=== PATIENT | female | born 1960 | race Caucasian/White ===

== ENCOUNTER 2016-12-06 16:42 | Emergency (ER) | payer OTHER ==
[2016-12-06 18:31] VITALS: BP 170/88
--- NOTE | 2016-12-06 18:51 | UC ---
Lower Extremity/Ankle HPI - HPI Summary HPI Summary: Tripped on edge of carpet at home 4 days ago, twisted L foot and ankle. Having pain in L foot with walking, no focal tenderness. Denies hx of fx or sx in that extremity. - History of Current Complaint Chief Complaint: UCLowerExtremity Stated Complaint: FOOT INJURY Time Seen by Provider: 12/06/16 18:17 Hx Obtained From: Patient ?: No Onset/Duration: Sudden Onset Severity Initially: Moderate Severity Currently: Mild Aggravating Factor(s): Standing, Ambulation Alleviating Factor(s): Rest Able to Bear Weight: Yes - Allergies/Home Medications Allergies/Adverse Reactions: Allergies Allergy/AdvReac Type Severity Reaction Status Date / Time Ibuprofen [From Advil] Allergy Unknown Unknown Verified 12/06/16 18:20 Reaction Details Erythromycin Allergy Unknown Verified 12/06/16 18:20 Reaction Details Penicillins [PCN] Allergy Unknown Verified 12/06/16 18:20 Reaction Details PMH/Surg Hx/FS Hx/Imm Hx Cardiovascular History Of: Reports: Hypertension Respiratory History Of: Reports: COPD - NEW DX 08/09/2013, Asthma - Surgical History Surgical History: Yes Surgery Procedure, Year, and Place: TUBAL LIGATION AGE 40, AGE 40. LEFT FOREARM PLATES BOTH BONES DUE TO FX AND LATER REMOVAL OF PLATE ON ONE BONE DUE TO INFECTION - Family History Known Family History: Positive: Cardiac Disease, Hypertension - Social History Occupation: Employed Full-time Lives: With Family Alcohol Use: Rare Substance Use Type: None Smoking Status (MU): Never Smoked Tobacco - Immunization History Most Recent Influenza Vaccination: UNSURE Most Recent Tetanus Shot: UP TO DATE Most Recent Pneumonia Vaccination: NEVER Review of Systems Constitutional: Negative Skin: Negative Eyes: Negative ENT: Negative Respiratory: Negative Cardiovascular: Negative Gastrointestinal: Negative Genitourinary: Negative Motor: Negative Neurovascular: Negative Musculoskeletal: Arthralgia Neurological: Negative Psychological: Negative All Other Systems Reviewed And Are Negative: Yes Physical Exam Triage Information Reviewed: Yes Appearance: Well-Appearing, No Pain Distress, Obese Vital Signs: Initial Vital Signs Temp 97.6 F 12/06/16 18:21 Pulse 76 12/06/16 18:21 Resp 18 12/06/16 18:21 BP 170/88 12/06/16 18:21 Pulse Ox 92 12/06/16 18:21 Vital Signs Reviewed: Yes Eye Exam: Normal Eyes: Positive: Conjunctiva Clear ENT Exam: Normal ENT: Positive: Normal ENT inspection, Hearing grossly normal, Pharynx normal, TMs normal Dental Exam: Normal Neck exam: Normal Neck: Positive: Supple, Nontender, No Lymphadenopathy Respiratory Exam: Normal Respiratory: Positive: Chest non-tender, Lungs clear, Normal breath sounds, No respiratory distress, No accessory muscle use Cardiovascular Exam: Normal Cardiovascular: Positive: RRR, No Murmur Musculoskeletal Exam: Other - mild tenderness over midfoot with squeeze Musculoskeletal: Positive: Strength Intact, ROM Intact Neurological Exam: Normal Psychological Exam: Normal Skin Exam: Normal Lower Extremity Course/Dx - Differential Dx/Diagnosis Provider Diagnoses: L foot sprain Discharge - Discharge Plan Condition: Stable Disposition: HOME Patient Education Materials: Foot Sprain (ED) Forms: *Work Release Referrals: Junior Jimenez MD [Primary Care Provider] - Herberth Leary MD [Medical Doctor] - Additional Instructions: If you are unable to return to normal activities within about a week, please see either Dr. Leary or your primary care provider.
--- NOTE | 2016-12-06 19:28 | RAD ---
INDICATION: Left foot injury. TECHNIQUE: 3 views of the left foot were obtained. FINDINGS: There is soft tissue swelling present over the dorsal aspect of the foot. The bones are normal alignment. No fracture is seen. Joint spaces appear maintained. IMPRESSION: SOFT TISSUE SWELLING, NO FRACTURE IS SEEN. IF THE PATIENT'S SYMPTOMS PERSIST RECOMMEND FOLLOW-UP IMAGING.
== END 2016-12-06 19:41 | disposition home or self-care (01) ==
LOC: UCEAST 16:42
DX: S93.602A Unspecified sprain of left foot, initial encounter (principal); X50.1XXA Overexertion from prolonged static or awkward postures, initial encounter; Y93.9 Activity, unspecified; Y92.9 Unspecified place or not applicable; Z88.6 Allergy status to analgesic agent; Z88.1 Allergy status to other antibiotic agents; Z88.0 Allergy status to penicillin
CPT/HCPCS: 99212; G0463

== ENCOUNTER 2017-03-04 23:06 | Emergency (ER) | payer OTHER ==
[2017-03-04 23:53] VITALS: BP 158/93
--- NOTE | 2017-03-04 23:53 | ED ---
Skin Complaint - HPI Summary HPI Summary: Patient presents with discoloration of her hands, right greater than left. She was recently hospitalized and had and A-line in the right wrist and worries she might have blood clot. She began to notice discoloration in the left thumb and index finger as well. She denies known injury. No N/T. Her hands are not cold and she has full function. - History of Current Complaint Chief Complaint: EDGeneral Time Seen by Provider: 03/04/17 23:27 Stated Complaint: DISCOLORATION ON BOTH HANDS Hx Obtained From: Patient Onset/Duration: Started Hours Ago Timing: Constant Onset Severity: Mild Current Severity: Moderate Pain Intensity: 4 Skin Location: Hand Aggravating Symptom(s): Nothing Alleviating Symptom(s): Nothing Associated Signs & Symptoms: Pallor Related History: Other: - hsopsitalization with A-line placement 7 days ago - Allergy/Home Medications Allergies/Adverse Reactions: Allergies Allergy/AdvReac Type Severity Reaction Status Date / Time Ibuprofen [From Advil] Allergy Unknown Unknown Verified 03/04/17 23:49 Reaction Details Azithromycin Allergy Unknown Verified 03/04/17 23:49 Reaction Details Clindamycin Allergy Unknown Verified 03/04/17 23:49 Reaction Details Doxycycline Allergy Unknown Verified 03/04/17 23:49 Reaction Details Erythromycin Allergy Unknown Verified 03/04/17 23:49 Reaction Details Penicillins [PCN] Allergy Unknown Verified 03/04/17 23:49 Reaction Details PMH/Surg Hx/FS Hx/Imm Hx Endocrine/Hematology History: Reports: Hx Anemia Cardiovascular History: Reports: Hx Hypertension - uses medication Respiratory History: Reports: Hx Asthma - when experiencing allergic reaction, Hx Chronic Obstructive Pulmonary Disease (COPD) - NEW DX 08/09/2013, Hx Seasonal Allergies, Other Respiratory Problems/Disorders - uses oxygen when sleeping 1.5- 2 L, elevated arturo-diaphragm Left side, History: Reports: Hx Kidney Stones - first time experiencing kidney stone Musculoskeletal History: Reports: Other Musculoskeletal History - 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 LEFT FOREARM PLATES BOTH BONES DUE TO FX AND LATER REMOVAL OF PLATE ON ONE BONE DUE TO INFECTION Hx Anesthesia Reactions: No Infectious Disease History: Reports: Hx Hepatitis - HEPATITIS A HX Denies: Traveled Outside the [place] in Last 30 Days - Family History Known Family History: Positive: Cardiac Disease, Hypertension - Social History Occupation: Unemployed Alcohol Use: Rare Alcohol Amount: 1-2 drinks a month Substance Use Type: Reports: None Smoking Status (MU): Never Smoked Tobacco Review of Systems Positive: Other - bluish tinge to skin All Other Systems Reviewed And Are Negative: Yes Physical Exam Triage Information Reviewed: Yes Vital Signs On Initial Exam: Initial Vitals Temp Pulse Resp BP Pulse Ox 97.7 F 83 18 136/84 95 03/04/17 23:19 03/04/17 23:19 03/04/17 23:19 03/04/17 23:19 03/04/17 23:19 Vital Signs Reviewed: Yes Appearance: Positive: Well-Appearing, No Pain Distress, Obese Skin: Positive: Warm, Skin Color Reflects Adequate Perfusion, Dry, Soft, Other - bluish tinge to dorsum of right hand and left index and thumb fingers that wipes away easily with soap and water. Head/Face: Positive: Normal Head/Face Inspection Eyes: Positive: EOMI, [place], Conjunctiva Clear ENT: Positive: Hearing grossly normal Neck: Positive: Supple, Nontender, No Lymphadenopathy Respiratory/Lung Sounds: Positive: Clear to Auscultation, Breath Sounds Present Cardiovascular: Positive: RRR Abdomen Description: Positive: Nontender, Soft Bowel Sounds: Positive: Present Musculoskeletal: Positive: Strength/ROM Intact Neurological: Positive: Sensory/Motor Intact, Alert, Oriented to Person Place, Time, [place] Bundle Intact Distally Psychiatric: Positive: Affect/Mood Appropriate AVPU Assessment: Alert Diagnostics - Vital Signs Vital Signs Temp Pulse Resp BP Pulse Ox 03/04/17 23:19 97.7 F 83 18 136/84 95 - Laboratory Lab Statement: Any lab studies that have been ordered have been reviewed, and results considered in the medical decision making process. Course/Dx - Course Course Of Treatment: The patient was wearing a new blue house coat with pockets and apparently by placing her hands in and out of her pockets she had rubbed the from the material onto her hands. Her had were cleaned with soap and water. No other services needed. - Differential Diagnoses - Skin Complaint Differential Diagnoses: Contact Dermatitis, Dehydration, Foreign Body, Hypoglycemia, Lymphadenitis, MRSA, Tinea, Urticaria - Diagnoses Provider Diagnoses: Bluish skin discoloration Discharge - Discharge Plan Condition: Stable Disposition: HOME Referrals: Junior Jimenez MD [Primary Care Provider] - Additional Instructions: Please follow-up with your primary care provider as needed.
== END 2017-03-05 00:09 | disposition home or self-care (01) ==
LOC: ED 23:06
DX: R23.0 Cyanosis (principal)
CPT/HCPCS: 99282

== ENCOUNTER 2019-04-20 13:18 | Emergency (ER) | payer OTHER ==
[2019-04-20 13:41] VITALS: BP 145/92
--- NOTE | 2019-04-20 14:12 | UC ---
Lower Extremity/Ankle HPI - HPI Summary HPI Summary: YESTERDAY A STUDENT STOOD UP FROM THEIR CHAIR AND THE CHAIR STRUCK THE PATIENT' S RIGHT LATERAL ANKLE. SHE STATES THE PAIN HAS GOTTEN PROGRESSIVELY WORSE. IS ABLE TO WEIGHT-BEAR BUT WITH DIFFICULTY. - History of Current Complaint Chief Complaint: UCLowerExtremity Stated Complaint: ANKLE INJURY Time Seen by Provider: 04/20/19 13:57 Hx Obtained From: Patient Onset/Duration: Sudden Onset, Lasting Days - 1.5 days, Still Present Severity Initially: Moderate Severity Currently: Moderate Pain Intensity: 7 Pain Scale Used: 0-10 Numeric Aggravating Factor(s): Standing, Ambulation Alleviating Factor(s): Nothing Able to Bear Weight: Yes - with pain - Allergies/Home Medications Allergies/Adverse Reactions: Allergies Allergy/AdvReac Type Severity Reaction Status Date / Time azithromycin Allergy unk Verified 04/20/19 13:30 clindamycin Allergy Numbness Verified 04/20/19 13:31 And Tingling doxycycline Allergy unk Verified 04/20/19 13:31 erythromycin base Allergy unk Verified 04/20/19 13:32 [From Erythrocin] ibuprofen [From Advil] Allergy unk Verified 04/20/19 13:30 Penicillins Allergy unk Verified 04/20/19 13:33 PMH/Surg Hx/FS Hx/Imm Hx Previously Healthy: Yes - Surgical History Surgical History: Yes Surgery Procedure, Year, and Place: diaphram repaired/[place] [facility] - Family History Known Family History: Positive: Cardiac Disease, Hypertension - Social History Alcohol Use: Occasionally Alcohol Amount: 1-2 drinks a month Substance Use Type: None Smoking Status (MU): Never Smoked Tobacco - Immunization History Most Recent Influenza Vaccination: UNSURE Most Recent Tetanus Shot: UP TO DATE Most Recent Pneumonia Vaccination: NEVER Review of Systems All Other Systems Reviewed And Are Negative: Yes Constitutional: Positive: Negative Skin: Positive: Negative Respiratory: Positive: Negative Cardiovascular: Positive: Negative Gastrointestinal: Positive: Negative Musculoskeletal: Positive: Arthralgia, Decreased ROM, Edema Physical Exam Triage Information Reviewed: Yes Appearance: Well-Appearing, No Pain Distress, Well-Nourished Vital Signs: Initial Vital Signs Temp 97.7 F 04/20/19 13:35 Pulse 69 04/20/19 13:35 Resp 16 04/20/19 13:35 BP 145/92 04/20/19 13:35 Pulse Ox 100 06/14/19 13:35 Vital Signs Reviewed: Yes Eyes: Positive: Conjunctiva Clear ENT: Positive: Hearing grossly normal Neck: Positive: Supple Respiratory: Positive: No respiratory distress, No accessory muscle use Cardiovascular: Positive: Pulses Normal Abdomen Description: Positive: Soft Musculoskeletal: Positive: ROM Limited @ - right ankle, Edema @ - right lateral ankle, Other: - TTP RIGHT LATERAL MALLEOLUS. ACHILLES INTACT Neurological: Positive: Alert Psychological: Positive: Age Appropriate Behavior Skin: Negative: Rashes Diagnostics - Radiology RIGHT ANKLE XRAYS Radiology Interpretation Completed By: Radiologist Summary of Radiographic Findings: Negative for fracture or malalignment. Preserved joint spaces. Diffuse soft tissue swelling. No subcutaneous emphysema or conspicuous foreign body. Lower Extremity Course/Dx - Course Course Of Treatment: X-RAY NEGATIVE FOR ANY BONY INJURY. BENIGNO WRAP AND GEL SPLINT PROVIDED FOR COMFORT. PATIENT DECLINES CRUTCHES TODAY. OTC MEDS NEEDED FOR DISCOMFORT. FOLLOW-UP WITH PCP OR ORTHOPEDIC NOT IMPROVING EXPECTED. - Differential Dx/Diagnosis Provider Diagnosis: Contusion of right ankle Discharge - Sign-Out/Discharge Documenting (check all that apply): Patient Departure All imaging exams completed and their final reports reviewed: Yes - Discharge Plan Condition: Stable Disposition: HOME Patient Education Materials: Contusion in Adults (ED) Forms: *Work Release Referrals: Herberth Leary MD [Medical Doctor] - If Needed Junior Jimenez MD [Primary Care Provider] - If Needed Additional Instructions: RIGHT ANKLE XRAY SHOWS NO FRACTURE OR MALALIGNMENT. PRESERVED JOINT SPACES. DIFFUSE SOFT TISSUE SWELLING. YOUR SYMPTOMS SHOULD IMPROVE SIGNIFICANTLY OVER THE NEXT 1-2 WEEKS. IF YOU DO NOT IMPROVE EXPECTED FOLLOW-UP WITH YOUR PCP OR ORTHO. YOU MAY BENEFIT FROM REPEAT IMAGING AT THAT TIME. OTC MEDS NEEDED FOR DISCOMFORT. REST, ICE, COMPRESS, ELEVATE. BENIGNO WRAP AND GEL SPLINT NEEDED FOR SYMPTOM RELIEF. BE SURE TO GO THROUGH SLOW RANGE OF MOTION AND STRETCHING EXERCISES DAILY YOU ARE ABLE TO PREVENT STIFFENING UP AND MAKING THE DISCOMFORT WORSE. - Billing Disposition and Condition Condition: STABLE Disposition: Home
== END 2019-04-20 14:45 | disposition home or self-care (01) ==
LOC: UCEAST 13:18
DX: S90.01XA Contusion of right ankle, initial encounter (principal); W22.8XXA Striking against or struck by other objects, initial encounter; Y93.89 Activity, other specified; Y92.9 Unspecified place or not applicable
CPT/HCPCS: 99213; G0463

== ENCOUNTER 2023-07-12 18:26 | Observation (INO) ==
[2023-07-12 22:32] LABS: Urine Appearance Clear; Urine Bilirubin Negative (Negative); Urine Blood 2+ (Negative); Urine Color Yellow; Urine Glucose 3+(>=500 mg/dL) (Negative); Urine Ketones Trace (Negative); Urine Nitrite Negative (Negative); Urine Protein Negative (Negative); Urine Specific Gravity 1.035 (1.002-1.030); Urine Urobilinogen Negative (Negative)
[2023-07-12 22:43] LABS: Urine Bacteria 1+ (Absent); Urine Red Blood Cell 1+(3-5/hpf) (Absent); Urine Squamous Epithelial Cell Present (Absent); Urine White Blood Cell Absent (Absent); Urine Yeast Present (Absent)
[2023-07-12 22:59] LABS: ABS Basophils 0.2 10^3/uL (0.0-0.1); ABS Eosinophils 0.1 10^3/uL (0.0-0.5); ABS Lymphocytes 2.3 10^3/uL (1.0-4.8); ABS Monocytes 0.6 10^3/uL (0.0-0.9); ABS Neutrophils 9.1 10^3/uL (1.5-7.6); ABS Nucleated RBC 0.01 10^3/ul; Eosinophil % 0.5 %; Hematocrit 45.2 % (35-45); Hemoglobin 15.6 g/dL (11.5-14.3); Lymphocyte % 19.1 %; Mean Corpuscular Hemoglobin 29.6 pg (27-33); Mean Corpuscular Hgb Conc 34.5 g/dL (31-36); Mean Corpuscular Volume 85.9 fL (80-97); Mean Platelet Volume 8.8 fL (7.5-11.2); Nucleated Red Blood Cells % 0.1 /100 WBC (0.0-0.4); Platelet Count 211 10^3/uL (150-450); Red Blood Count 5.26 10^6/uL (3.63-4.92); Red Cell Distribution Width 13.8 % (12-17); White Blood Count 12.3 10^3/uL (3.8-11.8)
[2023-07-12] MEDS ORDERED: Lactated Ringers 1000 ml BAG 1,000 ML IV ONE (23:00)
[2023-07-12 23:11] LABS: Albumin 3.9 g/dL (3.2-5.2); Calcium 10.5 mg/dL (8.6-10.3); Magnesium 1.7 mg/dL (1.9-2.7); Potassium 4.1 mmol/L (3.5-5.0); Total Bilirubin 1.4 mg/dL (0.2-1.0)
[2023-07-12 23:17] LABS: Albumin/Globulin Ratio 1.1 (1-3); Creatinine, Serum 0.65 mg/dL (0.51-0.95); Globulin 3.4 g/dL (2-4); Total Protein 7.3 g/dL (6.4-8.9); eGFR CKD-EPI 100.7 (>60)
[2023-07-12 23:55] LABS: TSH Ultra Thyroid Stim Horm 1.63 mcIU/mL (0.34-5.60)
[2023-07-13] MEDS ORDERED: Iohexol 350 (CONTRAST) 500 ML MDV IV ONE (00:41)
[2023-07-13] MEDS ORDERED: Magnesium Sulfate 2 gm BAG 2 GM/50 ML BAG IVPB ONE (04:45)
[2023-07-13] MEDS ORDERED: Lactated Ringers 1000 ml BAG 1,000 ML IV ONE (04:45)
[2023-07-13 04:58] LABS: HDL Cholesterol 47.1 mg/dL
[2023-07-13] MEDS: Enoxaparin 40 MG/0.4 ML SYR SUBCUT SCH (09:24)
[2023-07-13] MEDS ORDERED: diazePAM INJ CARPUJECT 5 MG/ML SYRINGE IV PRN (11:00)
[2023-07-13] MEDS ORDERED: Insulin GLARGINE 100 un/ml 10 ml VIAL SUBCUT ONE (14:17)
[2023-07-13] MEDS ORDERED: diazePAM INJ CARPUJECT 5 MG/ML SYRINGE IV ONE (14:58)
[2023-07-13] MEDS ORDERED: hydrALAZINE 20 mg/ml 1 ML Vial IV IV SLOW PU PRN (18:23)
[2023-07-13] MEDS ORDERED: Dextrose 50% Syringe 50 ml 25 GM/50 ML SYRINGE IV PUSH PRN (18:28)
[2023-07-13 19:27] LABS: C Reactive Protein 17.55 mg/L (<8.01)
[2023-07-14 05:51] LABS: ABS Basophils 0.1 10^3/uL (0.0-0.1); ABS Eosinophils 0.1 10^3/uL (0.0-0.5); ABS Lymphocytes 3.4 10^3/uL (1.0-4.8); ABS Monocytes 0.9 10^3/uL (0.0-0.9); ABS Neutrophils 4.3 10^3/uL (1.5-7.6); ABS Nucleated RBC 0.01 10^3/ul; Eosinophil % 1.6 %; Hematocrit 39.1 % (35-45); Hemoglobin 13.4 g/dL (11.5-14.3); Lymphocyte % 38.7 %; Mean Corpuscular Hemoglobin 29.5 pg (27-33); Mean Corpuscular Hgb Conc 34.3 g/dL (31-36); Mean Platelet Volume 7.9 fL (7.5-11.2); Nucleated Red Blood Cells % 0.1 /100 WBC (0.0-0.4); Platelet Count 177 10^3/uL (150-450); Red Blood Count 4.55 10^6/uL (3.63-4.92); Red Cell Distribution Width 13.7 % (12-17); White Blood Count 8.9 10^3/uL (3.8-11.8)
[2023-07-14 06:25] LABS: Calcium 9.8 mg/dL (8.6-10.3); Creatinine, Serum 0.53 mg/dL (0.51-0.95); HDL Cholesterol 32.8 mg/dL; Potassium 3.7 mmol/L (3.5-5.0); eGFR CKD-EPI 105.8 (>60)
[2023-07-14] MEDS: Enoxaparin 40 MG/0.4 ML SYR SUBCUT SCH (08:35)
[2023-07-14] MEDS: Miconazole 2% Top Powder BTL TOPICAL SCH ×2 (08:40→22:50)
[2023-07-14] MEDS ORDERED: Sulfur Hexaflouride MICROSPHR 25 MG VIAL ONE (08:57)
[2023-07-14] MEDS: Insulin GLARGINE 100 un/ml 10 ml VIAL SUBCUT SCH (10:47)
[2023-07-15] MEDS: Enoxaparin 40 MG/0.4 ML SYR SUBCUT SCH (08:01)
[2023-07-15] MEDS: Insulin GLARGINE 100 un/ml 10 ml VIAL SUBCUT SCH (08:02)
[2023-07-15] MEDS: Miconazole 2% Top Powder BTL TOPICAL SCH (08:08)
[2023-07-15 10:29] VITALS: BP 170/86
[2023-07-15 11:55] LABS: Hematocrit 41.1 % (35-45); Hemoglobin 14.2 g/dL (11.5-14.3)
== END 2023-07-15 18:07 | disposition home or self-care (01) ==
LOC: ED 18:26 → EDHOLD 07-13 04:28 → SUATTDRO 07-13 04:28 → INTOOBSV 07-13 04:28 → MEDTELE 07-13 20:21
PROVIDERS: ADMIT Student in an Organized Health Care Education/Training Program; ATTEND Internal Medicine

== ENCOUNTER 2024-09-25 11:48 | Observation (INO) ==
[2024-09-25] MEDS: Iohexol 350 (CONTRAST) 500 ML MDV IV ONE (13:57)
[2024-09-25 14:01] LABS: ABS Basophils 0.1 10^3/uL (0.0-0.1); ABS Eosinophils 0.2 10^3/uL (0.0-0.5); ABS Lymphocytes 1.7 10^3/uL (1.0-4.8); ABS Monocytes 0.5 10^3/uL (0.0-0.9); ABS Neutrophils 4.8 10^3/uL (1.5-7.6); Eosinophil % 2.4 %; Hematocrit 40.3 % (35-45); Hemoglobin 13.6 g/dL (11.5-14.3); Lymphocyte % 23.1 %; Mean Corpuscular Hemoglobin 27.6 pg (27-33); Mean Corpuscular Hgb Conc 33.7 g/dL (31-36); Mean Platelet Volume 7.1 fL (7.5-11.2); Platelet Count 267 10^3/uL (150-450); Red Blood Count 4.92 10^6/uL (3.63-4.92); Red Cell Distribution Width 15.5 % (12-17); White Blood Count 7.3 10^3/uL (3.8-11.8)
[2024-09-25] MEDS: Ondansetron 4 mg VIAL 2 MG/ML 2 ml VIAL IV ONE (14:12)
[2024-09-25] MEDS: Morphine 4 MG/ML VIAL (1 ml) IV ONE (14:12)
[2024-09-25 14:58] LABS: Albumin 4.2 g/dL (3.2-5.2); Albumin/Globulin Ratio 1.4 (1-3); C Reactive Protein 4.24 mg/L (<8.01); Calcium 10.1 mg/dL (8.6-10.3); Creatinine, Serum 0.63 mg/dL (0.51-0.95); Globulin 2.9 g/dL (2-4); Total Protein 7.1 g/dL (6.4-8.9); eGFR CKD-EPI 100.9 (>60)
[2024-09-25 15:02] LABS: Urine Appearance Turbid; Urine Bilirubin Negative (Negative); Urine Blood 3+ (Negative); Urine Color Colorless; Urine Glucose Negative (Negative); Urine Ketones Negative (Negative); Urine Nitrite Negative (Negative); Urine Protein Trace (Negative); Urine Specific Gravity 1.042 (1.002-1.030); Urine Urobilinogen Negative (Negative)
[2024-09-25 15:14] LABS: Urine Bacteria 1+ /HPF (Absent); Urine Red Blood Cell 3+(>10/hpf) /HPF (0-Trace); Urine Squamous Epithelial Cell Present /HPF (Absent); Urine White Blood Cell 3+(>20/hpf) /HPF (0-Trace)
[2024-09-25] MEDS: Dextrose 50% Syringe 50 ml 25 GM/50 ML SYRINGE IV PUSH ONE (15:25)
[2024-09-25] MEDS ORDERED: Dextrose 50% Syringe 50 ml 25 GM/50 ML SYRINGE ONE (15:56)
[2024-09-25] MEDS: cefTRIAXone 2 gm/50 mL D5W 2 GM/50 ML BAG IV ONE (17:11)
[2024-09-25] MEDS ORDERED: Dextrose 50% Syringe 50 ml 25 GM/50 ML SYRINGE IV PUSH PRN (17:13)
[2024-09-25] MEDS ORDERED: Polyethylene Glycol 3350 17 GM PACKET PO PRN (17:45)
[2024-09-25] MEDS ORDERED: Senna TAB 8.6 mg TAB PO PRN (17:45)
[2024-09-25] MEDS: Enoxaparin 40 MG/0.4 ML SYR SUBCUT SCH (18:47)
[2024-09-25] MEDS: NS 0.9% 1000 ml BAG 1,000 ML IV SCH (18:48)
[2024-09-25] MEDS: Magnesium Hydroxide LIQ 30 ML UDC PO SCH (20:53)
[2024-09-25] MEDS: Morphine 2 MG/ML SYRINGE IV PRN (20:58)
[2024-09-26 06:48] LABS: ABS Basophils 0.1 10^3/uL (0.0-0.1); ABS Eosinophils 0.2 10^3/uL (0.0-0.5); ABS Lymphocytes 2.4 10^3/uL (1.0-4.8); ABS Monocytes 0.6 10^3/uL (0.0-0.9); ABS Neutrophils 4.5 10^3/uL (1.5-7.6); Eosinophil % 3.1 %; Hematocrit 34.3 % (35-45); Hemoglobin 11.5 g/dL (11.5-14.3); Lymphocyte % 30.8 %; Mean Corpuscular Hemoglobin 27.8 pg (27-33); Mean Corpuscular Hgb Conc 33.6 g/dL (31-36); Mean Corpuscular Volume 82.7 fL (80-97); Mean Platelet Volume 7.1 fL (7.5-11.2); Platelet Count 211 10^3/uL (150-450); Red Blood Count 4.15 10^6/uL (3.63-4.92); Red Cell Distribution Width 15.6 % (12-17); White Blood Count 7.7 10^3/uL (3.8-11.8)
[2024-09-26 07:16] LABS: Calcium 9.4 mg/dL (8.6-10.3); Creatinine, Serum 0.75 mg/dL (0.51-0.95); Potassium 4.3 mmol/L (3.5-5.0); eGFR CKD-EPI 90.5 (>60)
[2024-09-26] MEDS: Ondansetron 4 mg VIAL 2 MG/ML 2 ml VIAL IV PRN (09:28)
[2024-09-26] MEDS: Influenza Vaccine *TRI* 2024-25* 0.5 ML SYRINGE IM ONE (10:29)
[2024-09-26] MEDS: cefTRIAXone 1 gm/50 mL D5W 1 GM/50 ML BAG IV SCH (16:33)
[2024-09-27 06:27] LABS: ABS Eosinophils 0.2 10^3/uL (0.0-0.5); ABS Lymphocytes 2.2 10^3/uL (1.0-4.8); ABS Monocytes 0.9 10^3/uL (0.0-0.9); ABS Neutrophils 5.1 10^3/uL (1.5-7.6); ABS Nucleated RBC 0.01 10^3/ul; Eosinophil % 2.8 %; Hematocrit 34.6 % (35-45); Hemoglobin 11.5 g/dL (11.5-14.3); Mean Corpuscular Hemoglobin 27.6 pg (27-33); Mean Corpuscular Hgb Conc 33.4 g/dL (31-36); Mean Corpuscular Volume 82.6 fL (80-97); Mean Platelet Volume 7.3 fL (7.5-11.2); Nucleated Red Blood Cells % 0.1 %/100WBC (0.0-0.8); Platelet Count 213 10^3/uL (150-450); Red Blood Count 4.19 10^6/uL (3.63-4.92); Red Cell Distribution Width 15.4 % (12-17); White Blood Count 8.5 10^3/uL (3.8-11.8)
[2024-09-27] MEDS ORDERED: Morphine 2 MG/ML SYRINGE IV PRN (07:41)
[2024-09-27 08:02] LABS: Calcium 9.2 mg/dL (8.6-10.3); Creatinine, Serum 0.74 mg/dL (0.51-0.95); Magnesium 2.2 mg/dL (1.9-2.7); Potassium 4.4 mmol/L (3.5-5.0)
[2024-09-27 10:03] VITALS: BP 125/69
== END 2024-09-27 13:35 | disposition home or self-care (01) ==
LOC: EDHOLD 11:48 → ED 11:48 → MED 18:40
PROVIDERS: ADMIT Internal Medicine; ATTEND Internal Medicine